=== PATIENT | male | born 1985 | race Caucasian/White ===

== ENCOUNTER 2016-07-11 07:03 | Emergency (ER) | payer SELFPAY ==
[2016-07-11 08:12] LABS: HEMOGLOBIN 14.7 gm/dl (14.0-17.5); RED BLOOD COUNT 4.78 M/UL (4.20-5.50); WHITE BLOOD COUNT 12.7 K/UL (4.5-11.0)
[2016-07-11 08:27] LABS: BUN/CREATININE RATIO 16 (0-10)
== END 2016-07-11 11:12 | disposition home or self-care (01) ==
LOC: ER1 07:03
PROVIDERS: Emergency Medicine
DX: R10.31 Right lower quadrant pain (principal); R10.32 Left lower quadrant pain; F17.200 Nicotine dependence, unspecified, uncomplicated
CPT/HCPCS: 36415; 80053; 81001; 83690; 85025; 96374; 96375; 96376; 99284; J2270; J2405

== ENCOUNTER 2020-06-15 21:24 | Emergency (ER) | payer OTHER ==
[~2020-06-15 21:24] MED LIST: AZITHROMYCIN250 MG PO; IBUPROFEN600 MG PO; LEVOFLOXACIN500 MG PO; METHADOSE40 MG PO; MIRALAX17 GM PO; PREDNISONE 20 M20 MG GT; PREDNISONE 20 M20 MG PO; PREDNISONE20 MG PO; PROAIR HFA8.5 GM INH; PROVENTIL HFA6.7 GM INH; SENOKOT-S TABL1 EACH PO; VENTOLIN HFA 66.7 GM INH; VIBRAMYCIN100 MG PO; ZITHROMAX250 MG PO
[2020-06-15] MEDS ORDERED: TORADOL 10 MG T10 MG PO (23:35)
[2020-06-15] MEDS ORDERED: NORFLEX 100 MG100 MG PO (23:35)
[2020-06-15] MEDS ORDERED: MEDROL DOSEPAK 24 MG PO (23:35)
== END 2020-06-15 23:50 | disposition home or self-care (01) ==
LOC: ER1 21:24
DX: R05 Cough (principal); R07.81 Pleurodynia; I10 Essential (primary) hypertension; F17.210 Nicotine dependence, cigarettes, uncomplicated
CPT/HCPCS: 71111; 94664; 96374; 96375; 99284; J1100; J1885

== ENCOUNTER 2021-06-15 14:06 | Emergency (ER) | payer OTHER ==
[~2021-06-15 14:06] MED LIST changes: +MEDROL DOSEPAK 24 MG PO; +NORFLEX 100 MG100 MG PO; +TORADOL 10 MG T10 MG PO
[2021-06-15 16:43] LABS: HEMOGLOBIN 15.9 gm/dl (14.0-17.5); RED BLOOD COUNT 5.14 M/UL (4.20-5.50); WHITE BLOOD COUNT 8.9 K/UL (4.5-11.0)
[2021-06-15 17:10] LABS: BUN/CREATININE RATIO 13 (0-10)
[2021-06-15] MEDS ORDERED: IBU600 MG PO ×2 (18:04→18:19)
[2021-06-15] MEDS ORDERED: OMNICEF 300 MG300 MG PO (18:16)
[2021-06-15] MEDS ORDERED: PROAIR HFA8.5 GM INH (18:16)
[2021-06-18 19:11] LABS: QUANTIFERON MITOGEN VALUE >10.00 IU/mL (.); QUANTIFERON NIL VALUE 0.03 IU/mL (.); QUANTIFERON TB1 AG VALUE 0.06 IU/mL (.); QUANTIFERON TB2 AG VALUE 0.06 IU/mL (.); QUANTIFERON-TB GOLD PLUS Negative (Negative)
== END 2021-06-15 18:10 | disposition home or self-care (01) ==
LOC: ER1 14:06
PROVIDERS: Student in an Organized Health Care Education/Training Program
DX: G47.30 Sleep apnea, unspecified (principal); R06.02 Shortness of breath; L03.113 Cellulitis of right upper limb; F17.210 Nicotine dependence, cigarettes, uncomplicated
CPT/HCPCS: 36600; 71045; 80053; 82550; 82553; 82803; 84484; 85025; 99285; Q9967